=== PATIENT | male | born 1995 | race Caucasian/White ===

== ENCOUNTER → 2020-09-10 | Outpatient (CLI) | payer OTHER ==
[~2020-09-10] MED LIST: HYDROCODON-ACE1 EAC7 PO; IBUPROFEN 600600 M1 PO; NORCO 5-325 TA1 EACH PO
== END ==
LOC: LAB 08:01
PROVIDERS: ATTEND Nurse Practitioner
DX: Z01.812 Encounter for preprocedural laboratory examination (principal); Z20.822 Contact with and (suspected) exposure to COVID-19

== ENCOUNTER → 2020-09-13 | Outpatient (CLI) | payer BC, OTHER ==
--- NOTE | 2020-09-14 21:57 | SLE ---
[facility] [place] [address] POLYSOMNOGRAPHY STUDY Name: MIK KAY Room #: [facility]..#: [id number] Admission: Attend Phys: JEREMIAH Rodrigues Discharge: Date of : 89 Report #: [id number] THIS REPORT FOR: cc: Jared Solomon MD, Neal A. MD Khan,Eleuterio Cedillo MD ~ DATE OF SERVICE: 09/13/2020 SLEEP STUDY REFERRING PHYSICIAN: Dr. Riaz Sanchez. Patient is a 25-year-old who weighs 315 pounds with a BMI of 38.3. The patient's Eden score was 9. The patient underwent split night study performed at [facility]. During the night study, the patient spent 553 minutes in bed and slept for 386 minutes with a sleep efficiency of 70%. Sleep latency was 5.7 minutes with a REM latency of 208 minutes. Sleep architecture showed increased stage 1 sleep, normal stage 2 sleep, absent N3 sleep and reduced REM sleep, which was 12% of the total sleep time. During the initial diagnostic portion of the study, the patient slept for 189 minutes. During that time, there were no obstructive or mixed apneas. There were 10 central apneas and 75 hypopneas. The patient's AHI was 27 per hour with a REM AHI of 11 per hour and a supine AHI of 51 per hour. EKG monitoring revealed an average heart rate of 64 beats per minute. No sustained arrhythmias observed. PLMs were seen at an index of 11 per hour and 0.3 per hour caused EEG arousals. PLMs resolved while the patient slept on CPAP. Nocturnal oximetry study revealed an average oxygen saturation of 95% with the lowest of 82%. Five minutes were spent with oxygen saturation of less than 89%. The patient met the criteria for CPAP initiation. It was started at 5 cm water and titrated up to 11 cm water. At the final pressure, the patient slept for 60 minutes including 16.5 minutes of lateral REM sleep. The patient's AHI was reduced to 4 per hour and oxygen saturation remained above 95%. IMPRESSION: 1. Moderate obstructive sleep apnea with worsening during supine sleep. Total AHI 27 per hour with a supine AHI of 51 per hour. 2. Mild nocturnal hypoxia, resolved with CPAP. [facility] [address] [place] [address] POLYSOMNOGRAPHY STUDY Name: MIK KAY Room #: [facility]#: [id number] Admission: Attend Phys: JEREMIAH Rodrigues Discharge: Date of : 89 Report #: [id number] 3. No clinically significant PLMs. RECOMMENDATIONS: 1. CPAP at 11 cm water completely eliminated the patient's sleep apnea and should be used on a nightly basis. 2. Follow up in 4-6 weeks to assess compliance with CPAP and to document clinical improvement. 3. Weight loss is strongly advised. 4. Avoid EYE[employer] depressants. 5. Cautioned regarding driving until symptoms of sleep apnea resolve with the use of CPAP. 6. Avoid supine sleep. <ELECTRONICALLY SIGNED> By: Eleuterio Raines MD 09/14/20 [id number] Eleuterio Raines MD /nt
== END ==
LOC: SLEEPLAB 18:00 → LABMALL 19:13
PROVIDERS: ATTEND Nurse Practitioner
DX: G47.30 Sleep apnea, unspecified (principal)